=== PATIENT | male | born 1965 | race Caucasian/White ===

== ENCOUNTER 2017-05-13 12:38 | Inpatient (IN) | payer OTHER, MEDICAID ==
[~2017-05-13] VITALS: Ht 157.5 cm; Wt 54.4 kg
[~2017-05-13 12:38] MED LIST: APR50 PO; ARANESP0.06 MG/ML SC; ATIVAN0.5 M1 GT; CILOSTAZOL100 M1 GT; COL250 PO; COLACE100 MG GT; COU5 PO; COZ25 PO; DUREZOL5 ML OS; HUMULIN R100 U/1 M1 SQ; LAC30L PO; LIO10 PO; LIPI20 GT; LIPI20 PO; LOP50 PO; MINOXIDIL2.5 MG GT; MIRTAZAPINE15 M2 GT; MORGIDOX 1X100100 MG PO; MULTI-VIT WITH50 ML GT; NATURE'S BLEND F1 MG GT; NIFEDIPINE60 MG GT; NOR10 PO; NOR10T PO; PEPCID20 MG GT; PRO40 PO; PYRIDOXINE HCL50 MG GT; SENTRY SENIOR1 TAB PO; SODIUM BICARBO650 MG GT; TYL325 PR; TYLENOL GT; VITB12I PO; [UNRECOGNIZED DRUG - OTHER] GT
[2017-05-13 13:42] LABS: PLATELET COUNT 198 x10^3mcL (130-400); RED CELL DISTRIBUTION WIDTH 14.3 % (11.5-14.5)
[2017-05-13 13:43] LABS: BASOPHIL % 0 % (0-2)
[2017-05-13 13:57] LABS: ALBUMIN 3.8 g/dL (3.4-5.0); BILIRUBIN TOTAL 0.6 mg/dL (0.20-1.00); CALCIUM 10.2 mg/dL (8.5-10.1); CARBON DIOXIDE 27.4 mmol/L (21-32); POTASSIUM SERUM 3.7 mmol/L (3.5-5.1)
[2017-05-13 13:59] LABS: CHOLESTEROL/HDL RATIO 1.9; CREATININE SERUM 6.3 mg/dL (0.7-1.3); TOTAL PROTEIN, SERUM 9.2 g/dL (6.4-8.2)
[2017-05-13] MEDS ORDERED: [UNRECOGNIZED DRUG - REMARK] GT (14:50)
[2017-05-13] MEDS ORDERED: ZOFRAN4 M3 GT (15:01)
[2017-05-13] MEDS ORDERED: PHARMASSURE VI100 MG GT (15:06)
[2017-05-13] MEDS ORDERED: MULTI-VITAMIN W1 TAB GT (15:19)
[2017-05-13] MEDS ORDERED: MELATONIN3 MG GT (15:20)
[2017-05-13] MEDS ORDERED: ISOPTO ATROPINE5 ML OS (15:26)
[2017-05-13 15:33] LABS: T3 TOTAL 0.74 ng/mL
[2017-05-13 15:41] LABS: MAGNESIUM 3.6 mg/dL (1.8-2.4); PHOSPHOROUS 4.2 mg/dL (2.5-4.9)
[2017-05-13 15:49] LABS: FREE T4 1.14 ng/dL (0.76-1.46); T4(THYROXINE) 8.9 ug/dL (4.7-13.3)
[2017-05-13 16:07] LABS: AMPHETAMINE QUAL UR NONE DETECTED (NEG <=1000)
[2017-05-13 16:38] LABS: microscopic required? YES; urine erythrocyte 3+ (NEGATIVE)
[2017-05-13 17:51] VITALS: BP 111/71
[2017-05-13 19:15] VITALS: BP 94/74
[2017-05-13 21:24] LABS: BASOPHIL % 0.2 % (0-2); PLATELET COUNT 149 x10^3mcL (130-400); RED CELL DISTRIBUTION WIDTH 13.8 % (11.5-14.5)
[2017-05-13 23:16] VITALS: BP 110/69
[2017-05-14 03:37] VITALS: BP 102/59
[2017-05-14 05:45] LABS: BASOPHIL % 0.4 % (0-2); PLATELET COUNT 131 x10^3mcL (130-400); RED CELL DISTRIBUTION WIDTH 14.3 % (11.5-14.5)
[2017-05-14 05:59] LABS: CALCIUM 8.5 mg/dL (8.5-10.1); CARBON DIOXIDE 23.4 mmol/L (21-32); PHOSPHOROUS 4.3 mg/dL (2.5-4.9); POTASSIUM SERUM 3.8 mmol/L (3.5-5.1)
[2017-05-14 06:00] LABS: CREATININE SERUM 6.3 mg/dL (0.7-1.3)
[2017-05-14 07:35] VITALS: BP 88/49
[2017-05-14 11:48] VITALS: BP 89/57
[2017-05-14 16:00] VITALS: BP 111/55
[2017-05-14 21:37] VITALS: BP 102/60
[2017-05-15 05:42] VITALS: BP 111/62
[2017-05-15 07:19] LABS: CALCIUM 8.4 mg/dL (8.5-10.1); CARBON DIOXIDE 30.4 mmol/L (21-32); CREATININE SERUM 3.5 mg/dL (0.7-1.3); MAGNESIUM 2.1 mg/dL (1.8-2.4)
[2017-05-15 07:29] LABS: BASOPHIL % 0.6 % (0-2); PLATELET COUNT 132 x10^3mcL (130-400); RED CELL DISTRIBUTION WIDTH 14.1 % (11.5-14.5)
[2017-05-15 07:36] LABS: POTASSIUM SERUM 2.9 mmol/L (3.5-5.1)
[2017-05-15 09:17] VITALS: BP 83/53
[2017-05-15 17:27] VITALS: BP 91/60
[2017-05-15 20:48] VITALS: BP 101/59
[2017-05-16 05:35] VITALS: BP 133/72
[2017-05-16 06:14] LABS: BASOPHIL % 0.4 % (0-2); PLATELET COUNT 141 x10^3mcL (130-400); RED CELL DISTRIBUTION WIDTH 14.4 % (11.5-14.5)
[2017-05-16 06:54] LABS: CALCIUM 9.1 mg/dL (8.5-10.1); CARBON DIOXIDE 27.7 mmol/L (21-32); POTASSIUM SERUM 4.1 mmol/L (3.5-5.1)
[2017-05-16 07:14] LABS: CREATININE SERUM 5.3 mg/dL (0.7-1.3)
[2017-05-16 09:06] VITALS: BP 138/76
[2017-05-16 15:41] VITALS: BP 131/70
[2017-05-16 17:01] VITALS: BP 104/61
[2017-05-16 21:12] VITALS: BP 111/68
[2017-05-17 05:49] VITALS: BP 105/69
[2017-05-17 06:17] LABS: BASOPHIL % 0.5 % (0-2); PLATELET COUNT 137 x10^3mcL (130-400); RED CELL DISTRIBUTION WIDTH 14.5 % (11.5-14.5)
[2017-05-17 06:18] LABS: CALCIUM 8.8 mg/dL (8.5-10.1); CARBON DIOXIDE 31.7 mmol/L (21-32); CREATININE SERUM 3.6 mg/dL (0.7-1.3)
[2017-05-17 06:33] LABS: POTASSIUM SERUM 2.9 mmol/L (3.5-5.1)
[2017-05-17 08:00] VITALS: BP 120/65
[2017-05-17 12:38] VITALS: BP 119/72
[2017-05-17 16:06] VITALS: BP 119/72
[2017-05-17 16:58] VITALS: BP 112/65
[2017-05-17 20:32] VITALS: BP 101/65
== END 2017-05-17 23:24 | DRG 871 ==
LOC: ED 12:38 → MU 13:53 → IC 13:53 → DU 13:53 → IC 16:29 → DU 05-14 17:30 → MU 05-15 06:53
PROVIDERS: Family Medicine; Internal Medicine; Specialist; ADMIT Family Medicine Sports Medicine
PROC: 05HM33Z Insertion of Infusion Device into Right Internal Jugular Vein, Percutaneous Approach (ICD-10-PCS; principal; 2017-05-13)
PROC: B543ZZA Ultrasonography of Right Jugular Veins, Guidance (ICD-10-PCS; 2017-05-13)
DX: A41.9 Sepsis, unspecified organism (principal); N18.6 End stage renal disease; N17.0 Acute kidney failure with tubular necrosis; R65.21 Severe sepsis with septic shock; K92.2 Gastrointestinal hemorrhage, unspecified; I12.0 Hypertensive chronic kidney disease with stage 5 chronic kidney disease or end stage renal disease; I69.354 Hemiplegia and hemiparesis following cerebral infarction affecting left non-dominant side; N39.0 Urinary tract infection, site not specified; D68.69 Other thrombophilia; E11.9 Type 2 diabetes mellitus without complications; D63.1 Anemia in chronic kidney disease; I36.1 Nonrheumatic tricuspid (valve) insufficiency; E87.6 Hypokalemia; E87.8 Other disorders of electrolyte and fluid balance, not elsewhere classified; R31.9 Hematuria, unspecified; E83.52 Hypercalcemia; E83.41 Hypermagnesemia; E78.5 Hyperlipidemia, unspecified; Z93.1 Gastrostomy status; Z99.2 Dependence on renal dialysis; I69.320 Aphasia following cerebral infarction; Z68.21 Body mass index [BMI] 21.0-21.9, adult; Z79.01 Long term (current) use of anticoagulants; Z93.4 Other artificial openings of gastrointestinal tract status
CPT/HCPCS: 36556; 36600; 43235; 45378; 82962; 83880; 84439; 90658; 92610-GN; A9698; C9113; J0171; J0885-EC; J1200; J1610; J1642; J2060; J2250; J2310; J2354; J2405; J2543; J2765; J2916; J3010; J3480; J3490; J7030; J7040; J7042; Q0092; Q9967

== ENCOUNTER 2019-09-05 17:42 | Inpatient (IN) | payer OTHER ==
[~2019-09-05] VITALS: Ht 185.4 cm; Wt 53.5 kg
[~2019-09-05 17:42] MED LIST changes: +ARANESP0.06 MG/ML IJ; +CARAFATE1 GM PO; +ISOPTO ATROPINE5 ML OS; +LATANOPROST2.5 ML OD; +MELATONIN3 MG GT; +METOCLOPRAMIDE H5 M1 PO; +MULTI-VITAMIN W1 TAB GT; +PHARMASSURE VI100 MG GT; +ZOFRAN4 M3 GT; +[UNRECOGNIZED DRUG - REMARK] GT
[2019-09-05 17:59] VITALS: Ht 185.4 cm; Wt 53.5 kg
[2019-09-05 19:43] LABS: PLATELET COUNT 195 x10^3mcL (130-400)
[2019-09-05 19:49] LABS: RED CELL DISTRIBUTION WIDTH 16.6 % (11.5-14.5)
[2019-09-05 20:06] LABS: BAND NEUTROPHIL 6 % (0-10); BASOPHIL 0 % (0-2); MONOCYTE 7 % (0-7); SEGMENTED NEUTROPHILS 80 % (37-75); rbc morphology (normal/abnorm) ABNORMAL (NORMAL)
[2019-09-05 20:07] LABS: PLATELET MORPHOLOGY PLATELETS NORMAL
[2019-09-05 20:11] LABS: ALBUMIN 1.7 g/dL (3.4-5.0); BILIRUBIN TOTAL 0.62 mg/dL (0.20-1.00); CALCIUM 8.7 mg/dL (8.5-10.1); CARBON DIOXIDE 35.9 mmol/L (21-32); CREATININE SERUM 3.9 mg/dL (0.7-1.3); POTASSIUM SERUM 3.2 mmol/L (3.5-5.1); TOTAL PROTEIN, SERUM 7.6 g/dL (6.4-8.2)
[2019-09-05 22:09] LABS: MAGNESIUM 2.3 mg/dL (1.8-2.4); PHOSPHOROUS 2.6 mg/dL (2.5-4.9)
[2019-09-05 22:14] LABS: CHOLESTEROL/HDL RATIO 3.3
[2019-09-05 22:17] LABS: T3 TOTAL 0.55 ng/mL
[2019-09-05 22:19] LABS: FREE T4 1.6 ng/dL (0.76-1.46); FREE THYROXINE INDEX 3.1 ug/dL (1.4-4.5); T4(THYROXINE) 7.6 ug/dL (4.7-13.3)
[2019-09-06] VITALS (7 sets, daily range): BP systolic 95–112; BP diastolic 51–62
[2019-09-06 06:26] LABS: BASOPHIL % 0.2 % (0-2); PLATELET COUNT 152 x10^3mcL (130-400)
[2019-09-06 06:42] LABS: RED CELL DISTRIBUTION WIDTH 16.8 % (11.5-14.5)
[2019-09-06 06:47] LABS: CALCIUM 8.1 mg/dL (8.5-10.1); CARBON DIOXIDE 33.6 mmol/L (21-32); MAGNESIUM 2.4 mg/dL (1.8-2.4); PHOSPHOROUS 3.4 mg/dL (2.5-4.9)
[2019-09-06 07:58] LABS: CREATININE SERUM 4.2 mg/dL (0.7-1.3)
[2019-09-07 05:12] VITALS: BP 113/62
[2019-09-07 06:56] LABS: BASOPHIL % 0.1 % (0-2); PLATELET COUNT 159 x10^3mcL (130-400)
[2019-09-07 07:20] LABS: RED CELL DISTRIBUTION WIDTH 16.8 % (11.5-14.5)
[2019-09-07 08:34] LABS: CARBON DIOXIDE 32.4 mmol/L (21-32); MAGNESIUM 2.4 mg/dL (1.8-2.4); PHOSPHOROUS 2.3 mg/dL (2.5-4.9)
[2019-09-07 08:37] LABS: POTASSIUM SERUM 2.9 mmol/L (3.5-5.1)
[2019-09-07 08:38] LABS: CREATININE SERUM 5.2 mg/dL (0.7-1.3)
[2019-09-07 08:45] VITALS: BP 104/60
[2019-09-07 13:16] VITALS: BP 100/59
[2019-09-07 17:07] VITALS: BP 103/62
[2019-09-07 21:26] VITALS: BP 109/64
[2019-09-08 05:53] VITALS: BP 112/70
[2019-09-08 06:35] LABS: BASOPHIL % 0.2 % (0-2); PLATELET COUNT 161 x10^3mcL (130-400)
[2019-09-08 07:05] LABS: CARBON DIOXIDE 31.8 mmol/L (21-32); CREATININE SERUM 6.2 mg/dL (0.7-1.3); POTASSIUM SERUM 3.1 mmol/L (3.5-5.1)
[2019-09-08 07:06] LABS: CALCIUM 8.8 mg/dL (8.5-10.1)
[2019-09-08 07:15] LABS: RED CELL DISTRIBUTION WIDTH 16.7 % (11.5-14.5)
[2019-09-08 08:00] VITALS: BP 106/62
[2019-09-08 11:33] VITALS: BP 114/67
[2019-09-08 16:31] VITALS: BP 120/70
[2019-09-08 21:02] VITALS: BP 124/59
[2019-09-09 05:26] VITALS: BP 139/63
[2019-09-09 06:45] LABS: BASOPHIL % 0.3 % (0-2); PLATELET COUNT 155 x10^3mcL (130-400)
[2019-09-09 06:51] LABS: CALCIUM 8.9 mg/dL (8.5-10.1); CARBON DIOXIDE 30.4 mmol/L (21-32); CREATININE SERUM 3.7 mg/dL (0.7-1.3); POTASSIUM SERUM 4.1 mmol/L (3.5-5.1)
[2019-09-09 07:26] LABS: RED CELL DISTRIBUTION WIDTH 16.3 % (11.5-14.5)
[2019-09-09 11:35] VITALS: BP 127/70
[2019-09-09 14:01] VITALS: BP 112/70
[2019-09-09 18:15] VITALS: BP 128/69
[2019-09-09 20:13] VITALS: BP 112/73
[2019-09-10 05:02] VITALS: BP 115/71
[2019-09-10 06:40] LABS: BASOPHIL % 0.6 % (0-2); PLATELET COUNT 149 x10^3mcL (130-400)
[2019-09-10 06:56] LABS: RED CELL DISTRIBUTION WIDTH 16.6 % (11.5-14.5)
[2019-09-10 07:02] LABS: CARBON DIOXIDE 32.5 mmol/L (21-32); POTASSIUM SERUM 4.1 mmol/L (3.5-5.1)
[2019-09-10 07:04] LABS: CREATININE SERUM 4.9 mg/dL (0.7-1.3)
[2019-09-10 10:36] LABS: BILIRUBIN DIRECT 0.13 mg/dL (0.0-0.2); BILIRUBIN TOTAL 0.4 mg/dL (0.20-1.00); TOTAL PROTEIN, SERUM 7.2 g/dL (6.4-8.2)
[2019-09-10 10:40] LABS: ALBUMIN 2.1 g/dL (3.4-5.0)
[2019-09-10 11:58] VITALS: BP 90/63
[2019-09-10 14:20] VITALS: BP 90/63
[2019-09-10 17:46] VITALS: BP 118/72
[2019-09-10 20:42] VITALS: BP 126/77
[2019-09-11] VITALS (7 sets, daily range): BP systolic 98–147; BP diastolic 62–78
[2019-09-11 06:29] LABS: BASOPHIL % 0.7 % (0-2); PLATELET COUNT 155 x10^3mcL (130-400)
[2019-09-11 06:46] LABS: CALCIUM 8.5 mg/dL (8.5-10.1); CARBON DIOXIDE 29.7 mmol/L (21-32); MAGNESIUM 1.9 mg/dL (1.8-2.4); POTASSIUM SERUM 3.5 mmol/L (3.5-5.1)
[2019-09-11 06:49] LABS: CREATININE SERUM 4.2 mg/dL (0.7-1.3)
[2019-09-11 06:54] LABS: RED CELL DISTRIBUTION WIDTH 16.5 % (11.5-14.5)
[2019-09-12 06:02] VITALS: BP 120/71
[2019-09-12 07:05] LABS: BASOPHIL % 0.7 % (0-2); PLATELET COUNT 171 x10^3mcL (130-400)
[2019-09-12 07:08] LABS: RED CELL DISTRIBUTION WIDTH 16.7 % (11.5-14.5)
[2019-09-12 07:12] LABS: CALCIUM 8.5 mg/dL (8.5-10.1); CREATININE SERUM 5.4 mg/dL (0.7-1.3); POTASSIUM SERUM 3.3 mmol/L (3.5-5.1)
[2019-09-12 08:39] VITALS: BP 139/70
[2019-09-12 10:28] VITALS: BP 139/70
[2019-09-12 12:49] VITALS: BP 140/72
[2019-09-12 16:10] VITALS: BP 100/60
[2019-09-13 05:50] VITALS: BP 139/86
[2019-09-13 06:15] LABS: BASOPHIL % 0.3 % (0-2); PLATELET COUNT 171 x10^3mcL (130-400)
[2019-09-13 06:24] LABS: RED CELL DISTRIBUTION WIDTH 17.3 % (11.5-14.5)
[2019-09-13 07:01] LABS: CALCIUM 9.1 mg/dL (8.5-10.1); CARBON DIOXIDE 28.2 mmol/L (21-32); CREATININE SERUM 3.7 mg/dL (0.7-1.3); POTASSIUM SERUM 3.3 mmol/L (3.5-5.1)
[2019-09-13 07:55] VITALS: BP 124/80
[2019-09-13 08:14] VITALS: BP 112/70
[2019-09-13 12:15] VITALS: BP 109/71
[2019-09-13 15:52] VITALS: BP 140/79
[2019-09-13 20:19] VITALS: BP 113/69
[2019-09-14 05:37] VITALS: BP 142/78
[2019-09-14 06:45] LABS: CARBON DIOXIDE 26.7 mmol/L (21-32); POTASSIUM SERUM 4.1 mmol/L (3.5-5.1)
[2019-09-14 06:49] LABS: CREATININE SERUM 4.9 mg/dL (0.7-1.3)
[2019-09-14 07:12] LABS: BASOPHIL % 0.4 % (0-2); PLATELET COUNT 163 x10^3mcL (130-400)
[2019-09-14 07:29] LABS: RED CELL DISTRIBUTION WIDTH 17.5 % (11.5-14.5)
[2019-09-14 09:26] VITALS: BP 126/71
[2019-09-14 13:34] VITALS: BP 128/76
[2019-09-14 17:32] VITALS: BP 119/72
[2019-09-14 20:24] VITALS: BP 128/68
[2019-09-15 06:00] VITALS: BP 101/67
[2019-09-15 06:15] LABS: BASOPHIL % 0.4 % (0-2); PLATELET COUNT 199 x10^3mcL (130-400)
[2019-09-15 06:54] LABS: CALCIUM 9.2 mg/dL (8.5-10.1); CARBON DIOXIDE 29.3 mmol/L (21-32); POTASSIUM SERUM 3.7 mmol/L (3.5-5.1)
[2019-09-15 07:02] LABS: CREATININE SERUM 5.9 mg/dL (0.7-1.3)
[2019-09-15 09:05] VITALS: BP 148/77
[2019-09-15 12:50] VITALS: BP 113/68
[2019-09-15] MEDS ORDERED: ELA10 GT (13:09)
[2019-09-15 16:03] VITALS: BP 113/68
== END 2019-09-15 17:00 | DRG 871 ==
LOC: ED 17:42 → DU 21:33
PROVIDERS: Emergency Medicine; Internal Medicine; Internal Medicine Gastroenterology; ADMIT Family Medicine
PROC: 5A1D70Z Performance of Urinary Filtration, Intermittent, Less than 6 Hours Per Day (ICD-10-PCS; 2019-09-08)
PROC: 5A1D70Z Performance of Urinary Filtration, Intermittent, Less than 6 Hours Per Day (ICD-10-PCS; 2019-09-10)
PROC: 0DHA8UZ Insertion of Feeding Device into Jejunum, Via Natural or Artificial Opening Endoscopic (ICD-10-PCS; 2019-09-11)
PROC: 0DP68UZ Removal of Feeding Device from Stomach, Via Natural or Artificial Opening Endoscopic (ICD-10-PCS; principal; 2019-09-11 14:00)
PROC: 5A1D70Z Performance of Urinary Filtration, Intermittent, Less than 6 Hours Per Day (ICD-10-PCS; 2019-09-12)
PROC: 5A1D70Z Performance of Urinary Filtration, Intermittent, Less than 6 Hours Per Day (ICD-10-PCS; 2019-09-15)
DX: A41.9 Sepsis, unspecified organism (principal); J18.9 Pneumonia, unspecified organism; N18.6 End stage renal disease; E43 Unspecified severe protein-calorie malnutrition; I69.351 Hemiplegia and hemiparesis following cerebral infarction affecting right dominant side; I12.0 Hypertensive chronic kidney disease with stage 5 chronic kidney disease or end stage renal disease; E11.43 Type 2 diabetes mellitus with diabetic autonomic (poly)neuropathy; K31.84 Gastroparesis; E11.22 Type 2 diabetes mellitus with diabetic chronic kidney disease; E11.65 Type 2 diabetes mellitus with hyperglycemia; K21.9 Gastro-esophageal reflux disease without esophagitis; K44.9 Diaphragmatic hernia without obstruction or gangrene; E11.51 Type 2 diabetes mellitus with diabetic peripheral angiopathy without gangrene; K80.20 Calculus of gallbladder without cholecystitis without obstruction; E87.6 Hypokalemia; E78.5 Hyperlipidemia, unspecified; D64.9 Anemia, unspecified; Z99.2 Dependence on renal dialysis; Z79.84 Long term (current) use of oral hypoglycemic drugs
CPT/HCPCS: 36600; 43235; 78226; 82962; 83880; 84439; 87804; 92526-GN; 92610-GN; A9537; G0378; J1200; J1610; J2250; J2310; J2405; J2543; J2765; J3010; J3370; J3480; J3490; J7030; J7040; J7042; J7050; J7060; J7070; J7620; J8597; P9047; Q0092; Q9967